=== PATIENT | female | born 1960 | race Caucasian/White ===

== ENCOUNTER 2017-02-14 11:33 | Day surgery (SDC) | payer OTHER ==
[~2017-02-14] VITALS: Ht 167.6 cm; Wt 67.9 kg
[2017-02-14] VITALS (16 sets, daily range): BP systolic 102–140; BP diastolic 51–83; PULSE 66–77; RESP 13–21; Ht 167.6 cm; Wt 67.9 kg
[~2017-02-14 11:33] MED LIST: ESCI20TA PO; GABA300C16 PO; NOL20 PO; SIMV20TA2 PO
[2017-02-14 12:52] LABS: ADD SCAN DIFF NO
[2017-02-14 12:56] LABS: BASOPHILS % 0.1 % (0.0-2.0); EOSINOPHILS # 0.3 10^3/ul (0.0-0.5); EOSINOPHILS % 4.4 % (0.0-7.0); HEMOGLOBIN 12.3 g/dl (12.0-16.0); LYMPHOCYTES # 1.8 10^3/ul (0.8-2.9); LYMPHOCYTES % 26.3 % (15.0-51.0); MEAN CORPUSCULAR HEMOGLOBIN 30.9 pg (29.0-33.0); MEAN CORPUSCULAR HGB CONC 32.4 g/dl (32.0-37.0); MEAN CORPUSCULAR VOLUME 95.5 fl (82.0-101.0); MEAN PLATELET VOLUME 9.2 fl (7.4-10.4); MONOCYTE # 0.4 10^3/ul (0.3-0.9); MONOCYTES % 5.1 % (0.0-11.0); NEUTROPHIL # 4.4 10^3/ul (1.6-7.5); NEUTROPHILS % 63.7 % (39.0-77.0); PLATELET COUNT 214 10^3/UL (140-415); RED BLOOD COUNT 3.98 10^6/ul (4.20-5.40); RED CELL DISTRIBUTION WIDTH 12.5 % (11.5-14.5); WHITE BLOOD COUNT 6.9 10^3/ul (4.8-10.8)
[2017-02-14 13:18] LABS: ALBUMIN 3.8 g/dl (3.3-4.9); ALBUMIN/GLOBULIN RATIO 1.26; BILIRUBIN,INDIRECT 0.4 mg/dl (0-1.1); BILIRUBIN,TOTAL 0.4 mg/dl (0.2-1.3); TOTAL PROTEIN 6.8 g/dl (6.1-8.1)
[2017-02-14] MEDS ORDERED: PROPOFOL 20 ML ONE (13:19)
[2017-02-14] MEDS ORDERED: LIDOCAINE 100 MG SYRINGE ONE (13:20)
[2017-02-14] MEDS ORDERED: GLYCOPYRROLATE 0.4 MG INJ ONE (13:20)
[2017-02-14] MEDS ORDERED: NEOSTIGMINE 3 MG/3 ML SYRINGE ONE (13:20)
[2017-02-14] MEDS ORDERED: CEFAZOLIN 1 GM INJ ONE (13:21)
[2017-02-14] MEDS ORDERED: ROCURONIUM 50 MG INJ ONE (13:21)
[2017-02-14] MEDS ORDERED: ONDANSETRON 4 MG INJ ONE (13:23)
[2017-02-14 13:24] LABS: CREATININE 0.69 mg/dl (0.44-1.00); POTASSIUM 4.5 mmol/L (3.5-5.1)
[2017-02-14] MEDS ORDERED: DIPHENHYDRAMINE 50 MG INJ IV PRN (13:30)
[2017-02-14] MEDS ORDERED: MIDAZOLAM 1 MG/ML 2 ML INJ IV PRN (13:30)
[2017-02-14] MEDS ORDERED: LABETALOL HCL 20MG INJ IV PRN (13:30)
[2017-02-14] MEDS ORDERED: ONDANSETRON 4 MG INJ IV PRN (13:30)
[2017-02-14] MEDS ORDERED: ATROPINE 1 MG/10 ML SYRINGE IV PRN (13:30)
[2017-02-14] MEDS ORDERED: FENTAnyl 50 MCG/ML VIAL IV PRN ×2 (13:30)
[2017-02-14] MEDS ORDERED: HYDROmorphONE (0.2 MG/ML) 10ML SYG IV PRN ×3 (13:30)
[2017-02-14] MEDS ORDERED: EPHEDrine SULFATE 50 MG/5 ML SYG IV PRN (13:30)
[2017-02-14] MEDS ORDERED: hydrALAzine 20 MG INJ IV PRN (13:30)
[2017-02-14] MEDS ORDERED: MEPERIDINE 25 MG INJ IV PRN (13:30)
[2017-02-14] MEDS ORDERED: OXYCODONE/ACETAMINOPHEN (5/325) TAB PO PRN ×2 (13:30)
[2017-02-14] MEDS ORDERED: morphine (1 MG/ML) 10ML SYRINGE IV PRN ×3 (13:30)
--- NOTE | 2017-02-14 13:49 | HP ---
Date/Time of Note Date/Time of Note DATE: 02/14/17 TIME: 13:46 Assessment/Plan VTE Prophylaxis VTE Prophylaxis Intervention: ambulation Lines/Catheters IV Catheter Type (from Nrsg): Peripheral IV Assessment/Plan Assessment/Plan post menopausal bleeding proceed with histeroscopy and Fx and D & C HPI/ROS Admit Date/Time Admit Date/Time 02/14/2017 Hx of Present Illness 56 y/o female here for post menopausal bleeding and endometrial thickness over 8 mm. Has Hx of stage 3 breast ca. on Tomoxiphene ROS Constitutional: improved, no complaints Eyes: no complaints ENT: no complaints Respiratory: no complaints Cardiovascular: no complaints Gastrointestinal: no complaints Genitourinary: no complaints Musculoskeletal: no complaints Skin: no complaints Neurologic: no complaints Endocrine: no complaints Lymphatic: no complaints Psychological: nl mood/affect, no complaints Immunologic: no complaints PMH/Family/Social Past Medical History breast ca Past Surgical History left mastectomy Family History Significant Family History: no pertinent family hx Social History Alcohol Use: none Smoking Status: Former smoker Drug Use: none Exam/Review of Systems Vital Signs Vitals Vital Signs Date Time Temp Pulse Resp B/P Pulse Ox O2 Delivery O2 Flow Rate FiO2 02/14/17 11:50 97.9 77 16 113/75 97 Room Air Exam Constitutional: alert, oriented, well developed Psych: nl mood/affect, no complaints Head: atraumatic, normocephalic Eyes: EOMI, PERRL, nl conjunctiva, nl lids, nl sclera ENMT: nl external ears & nose, nl lips & teeth, nl nasal mucosa & septum Neck: non-tender, supple Respiratory: clear to auscultation, normal air movement Cardiovascular: nl pulses, regular rate and rhythm Gastrointestinal: nl liver, spleen, non-tender, soft Musculoskeletal: nl extremities to inspection Extremities: normal pulses Neurological: NIB ADJUSTER II-XII intact, nl mental status, nl speech, nl strength Skin: nl turgor, No rash or lesions Lymph: nl lymph nodes Labs Result Diagram: 02/14/17 1242 02/14/17 1242 DARIEN VANN MD February 14, 2017 13:49
[2017-02-14] MEDS ORDERED: DOXYCYCLINE 100 MG TAB PO ONE (15:00)
[2017-02-14] MEDS ORDERED: DOXYCYCLINE 100 MG TAB ONE (15:07)
--- NOTE | 2017-02-14 15:46 | OPR ---
DATE OF OPERATION: 02/14/2017 PREOPERATIVE DIAGNOSES: Postmenopausal vaginal bleeding. The patient on tamoxifen. POSTOPERATIVE DIAGNOSIS: Status post fractional dilatation and curettage, hysteroscopy and removal of submucous myoma. OPERATION PERFORMED: Hysteroscopy, removal of submucous myoma and fractional dilatation and curetta ge. SURGEON: DARIEN VANN MD. ANESTHESIOLOGIST: BEVERLEY ISBELL MD. TYPE OF ANESTHESIA: General. PROCEDURE: The patient was placed on the OR table in supine position. General anesthesia was induc ed. Patient was taken to lithotomy position. Perineal and vaginal area were prepped, draped for us ual vaginal procedure. Under satisfactory anesthesia, a weighted speculum was inserted into vagina. Cervix was brought down to operative field by placing a tenaculum on anterior portion of the cerv ix. The cervix was already opened. A 5 mm hysteroscope was introduced into cervical canal, easily entered inside the uterine cavity and posterior wall of the uterine cavity close to the left side of the posterior wall was 0.5 cm submucous pedunculated submucous myoma seen. The submucous myoma was removed by placing the scissors underneath the pedunculated area and finally, the myoma was removed with a grasper. The specimen was sent for pathology. At this point, inside the uterus appeared to be atrophic and there was no overgrowth of tissue seen. At this point, after removing the hysteros cope, a fractional D and C was performed by the following procedure: A Kevorkian curet was introduc ed into cervical canal. The cervical canal was vigorously curettaged and tissue was removed, sent f or pathology and then 0.5 cm curet was introduced into the uterine cavity. Uterine cavity was also vigorously curettaged and a specimen was sent for pathology. Hemostasis appeared to be secure and a t this point, the procedure was terminated after removing all of the instruments from vaginal cavity . The patient was returned to supine position and transferred to postanesthesia recovery room in go od condition. ESTIMATED BLOOD LOSS: Less than 5 mL. Dictated By: DARIEN WILCOX/NTS Conf#: [id number] DID#: [id number]
== END 2017-02-14 17:22 | disposition home or self-care (01) ==
LOC: SDS 11:33
PROVIDERS: ATTEND Obstetrics & Gynecology
DX: D25.0 Submucous leiomyoma of uterus (principal); N95.0 Postmenopausal bleeding
CPT/HCPCS: 58558; 80053; 85025; 88305; J0690; J2001; J2405; J2710; Z7512; Z7610